=== PATIENT | female | born 1945 | race Two or more races ===

== ENCOUNTER 2023-12-26 21:01 | Inpatient (IN) | payer OTHER ==
[~2023-12-26] VITALS: Ht 152.4 cm; Wt 81.6 kg
[2023-12-26] MEDS ORDERED: 0.9 % SODIUM CHLORIDE 1,000 ML IV SCH (21:45)
[2023-12-26 22:10] LABS: HEMATOCRIT 30.8 % (36.0-45.00); MEAN CELL VOLUME 85.2 fL (80.00-100.00); MEAN CORPUSCULAR HEMOGLOBIN 27.7 pg (27.00-32.0); MEAN CORPUSCULAR HGB CONC 32.6 g/dl (32.0-36.0); PLATELET COUNT 260 K/uL (150-450); RED BLOOD COUNT 3.61 M/uL (4.00-6.00)
[2023-12-26 22:26] LABS: URINE APPEARANCE Turbid; URINE BILIRRUBIN Negative (NEGATIVE); URINE BLOOD Moderate; URINE COLOR Yellow; URINE GLUCOSE Negative (NEGATIVE); URINE LEUKOCYTE Large; URINE NITRATE Negative; URINE PROTEIN Trace (NEGATIVE); URINE UROBILINOGEN 0.2 E.U./dl
[2023-12-26 22:29] LABS: CALCIUM 9.5 mg/dL (8.5-10.1); CREATININE SERUM 1.52 mg/dL (0.55-1.02); GFR 32.99; POTASSIUM 5.35 mEq/L (3.5-5.1)
[2023-12-26 22:30] LABS: URINE EPITHELIAL CELLS 5.2 uL (0.0-38.8); URINE RBC 3.8 uL (0.0-20.8); URINE WBC 3693.4 uL (0.0-23.2)
[2023-12-26 22:31] LABS: URINE BACTERIA > 9821.5 uL (0.0-1933)
[2023-12-26] MEDS ORDERED: IOHEXOL 350 mgI/ML 50ML BOTT PO ONE (23:00)
[2023-12-26] MEDS ORDERED: PANTOPRAZOLE SO40 MG PO (23:23)
[2023-12-26] MEDS ORDERED: TRAZODONE HCL50 MG PO (23:23)
[2023-12-26] MEDS ORDERED: LEVOFLOXACIN500 MG PO (23:23)
[2023-12-26] MEDS ORDERED: ATORVASTATIN CA10 MG PO (23:23)
[2023-12-26] MEDS ORDERED: METOPROLOL SUCC25 MG PO (23:23)
[2023-12-26] MEDS ORDERED: IRBESARTAN150 MG PO (23:23)
[2023-12-26] MEDS ORDERED: METFORMIN HCL500 M4 PO (23:23)
[2023-12-26] MEDS ORDERED: HUMULIN 70100 UNIT/2 SUBCUTANEO (23:24)
[2023-12-27] MEDS ORDERED: CEFTRIAXONE SODIUM 1,000 MG VIAL IV STA (04:15)
[2023-12-27] MEDS ORDERED: INSULIN REGULAR, HUMAN 300 UNITS/3 ML UNITS SUBCUTANEO ONE (09:30)
[2023-12-27] MEDS ORDERED: FAMOTIDINE/PF 20 MG in 0.9 % SODIUM CHLORIDE 8 ML IV PUSH SCH (17:28)
[2023-12-27] MEDS ORDERED: ONDANSETRON HCL 4 MG in 0.9 % SODIUM CHLORIDE 50 ML IV PRN (17:30)
[2023-12-27] MEDS ORDERED: ACETAMINOPHEN 500 MG GEL..CAP PO PRN (17:30)
[2023-12-27] MEDS ORDERED: 0.9 % SODIUM CHLORIDE 1,000 ML IV SCH (17:30)
[2023-12-27] MEDS ORDERED: INSULIN LISPRO 1,000 UNIT/10 ML UNITS SUBCUTANEO PRN (17:45)
[2023-12-27] MEDS ORDERED: DEXTROSE 50 % IN WATER 0.5 G/ML DISP.SYRIN IV PRN (17:45)
[2023-12-27] MEDS ORDERED: PIPERACILLIN/TAZOBACTAM SODIUM 2.25 GM in DEXTROSE 5 % IN WATER 50 ML IV SCH (18:00)
[2023-12-27 19:48] LABS: INR < 0.93; PARTIAL THROMBOPLASTIN TIME 28.4 SECONDS (22.0-34.0); PROTHROMBIN TIME 9.3 SECONDS (9.0-11.5)
[2023-12-27] MEDS ORDERED: TRAZODONE HCL 50 MG TABLET PO SCH (21:00)
[2023-12-27] MEDS ORDERED: DIPHENHYDRAMINE HCL 50 MG/ML VIAL 1ML IV ONE (21:30)
[2023-12-28] MEDS ORDERED: SODIUM POLYSTYRENE SULFONATE 15 G/4 TSP TSP PO SCH (09:00)
[2023-12-28] MEDS ORDERED: IRON FUM,PS/FOLIC/BCOMP,C NO.9 1 CAP CAPSULE PO SCH (09:00)
[2023-12-28] MEDS ORDERED: METOPROLOL SUCCINATE 25 MG TAB.SR.24H PO SCH (09:00)
[2023-12-28] MEDS ORDERED: IRBESARTAN 150 MG TABLET PO SCH (09:00)
[2023-12-28] MEDS ORDERED: ATORVASTATIN CALCIUM 10 MG TABLET PO SCH (09:00)
[2023-12-28] MEDS ORDERED: CEFTRIAXONE SODIUM 2,000 MG VIAL IV SCH (17:00)
[2023-12-28] MEDS ORDERED: TEMAZEPAM 7.5 MG CAPSULE PO SCH (21:00)
[2023-12-28] MEDS ORDERED: TEMAZEPAM 15 MG CAPSULE PO SCH (21:00)
[2023-12-29 06:16] LABS: HEMATOCRIT 29.7 % (36.0-45.00); HEMOGLOBIN 9.8 g/dL (12.0-15.00); MEAN CELL VOLUME 86.4 fL (80.00-100.00); MEAN CORPUSCULAR HEMOGLOBIN 28.5 pg (27.00-32.0); PLATELET COUNT 245 K/uL (150-450); RED BLOOD COUNT 3.43 M/uL (4.00-6.00); RED CELL DISTRIBUTION WIDTH 12.7 % (11.5-14.5)
[2023-12-29 06:57] LABS: ALBUMIN 2.5 gm/dL (3.4-5.0); BILIRUBIN TOTAL 0.22 mg/dL (0.3-1.2); CALCIUM 8.7 mg/dL (8.5-10.1); CREATININE SERUM 1.55 mg/dL (0.55-1.02); GFR 32.25; GLOBULINA 3.3 G/DL (2.4-3.5); PHOSPHOROUS 3.7 mg/dL (2.5-4.9); POTASSIUM 4.54 mEq/L (3.5-5.1); TOTAL PROTEIN 5.8 gm/dL (6.4-8.2)
[2023-12-29 07:03] LABS: C-REACTIVE PROTEIN 0.4 MG/DL (0.00-0.29)
[2023-12-30 06:28] LABS: PH,URINE 5.5 (5.0-8.0); URINE APPEARANCE Clear; URINE BILIRRUBIN Negative (NEGATIVE); URINE BLOOD Small; URINE COLOR Yellow; URINE GLUCOSE Negative (NEGATIVE); URINE LEUKOCYTE Large; URINE NITRATE Negative; URINE PROTEIN 30 (NEGATIVE); URINE UROBILINOGEN 0.2 E.U./dl
[2023-12-30 06:29] LABS: URINE BACTERIA 326.2 uL (0.0-1933); URINE EPITHELIAL CELLS 55.8 uL (0.0-38.8); URINE WBC 240.4 uL (0.0-23.2)
[2023-12-30] MEDS ORDERED: FUROsemide 20 MG/2 ML VIAL IV STA (17:52)
[2024-01-01 08:54] LABS: ALBUMIN 2.8 gm/dL (3.4-5.0); BILIRUBIN TOTAL 0.19 mg/dL (0.3-1.2); CREATININE SERUM 1.71 mg/dL (0.55-1.02); GFR 28.8; GLOBULINA 3.8 G/DL (2.4-3.5); MAGNESIUM 2.4 mg/dL (1.8-2.4); PHOSPHOROUS 2.6 mg/dL (2.5-4.9); POTASSIUM 4.29 mEq/L (3.5-5.1); TOTAL PROTEIN 6.6 gm/dL (6.4-8.2)
[2024-01-01 09:15] LABS: HEMATOCRIT 32.4 % (36.0-45.00); HEMOGLOBIN 10.5 g/dL (12.0-15.00); MEAN CELL VOLUME 86.7 fL (80.00-100.00); MEAN CORPUSCULAR HEMOGLOBIN 28.3 pg (27.00-32.0); MEAN CORPUSCULAR HGB CONC 32.6 g/dl (32.0-36.0); PLATELET COUNT 257 K/uL (150-450); RED BLOOD COUNT 3.73 M/uL (4.00-6.00); RED CELL DISTRIBUTION WIDTH 12.8 % (11.5-14.5)
[2024-01-01 13:29] LABS: C-REACTIVE PROTEIN 0.86 MG/DL (0.00-0.29)
[2024-01-01] MEDS ORDERED: LACTOBACILLUS ACIDOPHILUS 1 CAP CAP PO SCH (21:59)
[2024-01-02 07:23] LABS: ALBUMIN 2.5 gm/dL (3.4-5.0); CALCIUM 8.9 mg/dL (8.5-10.1); CREATININE SERUM 1.57 mg/dL (0.55-1.02); GFR 31.78; POTASSIUM 3.79 mEq/L (3.5-5.1)
== END 2024-01-02 18:36 | disposition home or self-care (01) | DRG 690 ==
LOC: ER 21:02 → MEDI 12-27 18:13
PROVIDERS: Emergency Medicine; General Practice; Internal Medicine Infectious Disease; Internal Medicine Nephrology; ADMIT Internal Medicine; ATTEND Internal Medicine
PROC: BW21ZZZ Computerized Tomography (CT Scan) of Abdomen and Pelvis (ICD-10-PCS; principal; 2023-12-26)
PROC: 4A12X4Z Monitoring of Cardiac Electrical Activity, External Approach (ICD-10-PCS; 2023-12-28)
DX: N39.0 Urinary tract infection, site not specified (principal); N17.9 Acute kidney failure, unspecified; N13.39 Other hydronephrosis; R31.0 Gross hematuria